=== PATIENT | male | born 1960 | race Asian ===

== ENCOUNTER 2017-11-26 08:54 | Emergency (ER) | payer MEDICARE, MEDICAID ==
[~2017-11-26] VITALS: Ht 172.7 cm; Wt 70.0 kg
[2017-11-26 10:35] LABS: BASOPHILS % 0.8 % (0.0-2.0); EOSINOPHILS % 0.6 % (0.0-5.0); HEMATOCRIT. 34.4 % (42.0-52.0); LYMPHOCYTES % 21.5 % (20.0-50.0); MEAN CORPUSCULAR HEMOGLOBIN 29.3 pg (28.0-32.0); MEAN CORPUSCULAR VOLUME 91.7 fL (80.0-94.0); MEAN PLATELET VOLUME 7.1 fl (7.4-10.4); MONOCYTES % 12.2 % (2.0-8.0); NEUTROPHILS % 64.9 % (40.0-76.0); PLATELET 146 x1000/uL (130-400); RED BLOOD CELL COUNT 3.75 mill/uL (4.7-6.1); RED CELL DISTRIBUTION WIDTH 16.9 % (11.6-14.6)
[2017-11-26 10:41] LABS: PARTIAL THROMBOPLASTIN TIME 33.2 sec (23.4-31.0); PROTHROMBIN TIME 10.4 sec (9.4-11.6)
[2017-11-26 10:43] LABS: AMMONIA < 25 uMol/L (<32); CHLORIDE 102 mEq/L (98-107)
[2017-11-26 12:01] LABS: PHOSPHORUS 3.7 mg/dL (2.5-4.9)
[2017-11-26 17:43] VITALS: BP 167/81
[2017-11-26] MEDS ORDERED: SODIUM CHLORIDE 0.9% INJ 3ML FLUSH IVF SCH (22:00)
== END 2017-11-26 19:05 | disposition home or self-care (01) ==
LOC: ER 08:54 → EDBEDREQ 12:07 → CANRESERV 15:00 → ENRESERV 15:00 → CANBEDREQ 17:01 → ER 19:05
DX: E11.22 Type 2 diabetes mellitus with diabetic chronic kidney disease (principal); I12.0 Hypertensive chronic kidney disease with stage 5 chronic kidney disease or end stage renal disease; S09.90XA Unspecified injury of head, initial encounter; S80.211A Abrasion, right knee, initial encounter; M54.5 Low back pain; M25.562 Pain in left knee; N18.6 End stage renal disease; F99 Mental disorder, not otherwise specified; Z99.2 Dependence on renal dialysis; Z86.73 Personal history of transient ischemic attack (TIA), and cerebral infarction without residual deficits; W01.0XXA Fall on same level from slipping, tripping and stumbling without subsequent striking against object, initial encounter; Y93.89 Activity, other specified; Y92.488 Other paved roadways as the place of occurrence of the external cause
CPT/HCPCS: 36415; 70450; 71045; 73562; 80053; 82140; 83690; 83735; 84100; 85025; 85610; 85730; 93005; 99285